=== PATIENT | male | born 1955 | race Caucasian/White ===

== ENCOUNTER 2016-06-21 11:24 | Emergency (ER) | payer OTHER ==
[~2016-06-21] VITALS: Ht 165.1 cm; Wt 89.0 kg
[2016-06-21 11:26] VITALS: Ht 165.1 cm; Wt 89.0 kg
[2016-06-21] MEDS ORDERED: SOD CHLORIDE 0.9% 1,000 ML IV STA (11:44)
[2016-06-21] MEDS ORDERED: ONDANSETRON 4 MG INJ IV STA (11:44)
[2016-06-21] MEDS ORDERED: MECLIZINE 12.5 MG TAB PO ONE (12:00)
[2016-06-21 12:04] LABS: ADD SCAN DIFF NO
[2016-06-21 12:11] LABS: BASOPHILS % 0.3 % (0.0-2.0); EOSINOPHILS % 0.1 % (0.0-7.0); HEMATOCRIT 44.6 % (42.0-52.0); HEMOGLOBIN 15.4 g/dl (14.0-18.0); LYMPHOCYTES # 0.8 10^3/ul (0.8-2.9); LYMPHOCYTES % 6.2 % (15.0-51.0); MEAN CORPUSCULAR HEMOGLOBIN 29.9 pg (29.0-33.0); MEAN CORPUSCULAR HGB CONC 34.5 g/dl (32.0-37.0); MEAN CORPUSCULAR VOLUME 86.6 fl (82.0-101.0); MEAN PLATELET VOLUME 9.9 fl (7.4-10.4); MONOCYTE # 0.4 10^3/ul (0.3-0.9); MONOCYTES % 3.3 % (0.0-11.0); NEUTROPHIL # 11.2 10^3/ul (1.6-7.5); NEUTROPHILS % 89.2 % (39.0-77.0); PLATELET COUNT 236 10^3/UL (140-415); RED BLOOD COUNT 5.15 10^6/ul (4.70-6.10); RED CELL DISTRIBUTION WIDTH 13.1 % (11.5-14.5); WHITE BLOOD COUNT 12.6 10^3/ul (4.8-10.8)
--- NOTE | 2016-06-21 12:19 | RADRPT ---
PROCEDURE: XR Chest. CLINICAL INDICATION: Shortness of breath. Cerebrovascular accident. TECHNIQUE: Single frontal view. COMPARISON: None. FINDINGS: The lungs are clear. The heart size is normal. There is no pleural effusion. There is no pneumothorax. IMPRESSION: 1. Normal chest radiograph. RPTAT: QQ .Luan Britt MD, MD Date Time Electronically viewed and signed by .Luan Britt MD, MD on 06/21/2016 12:18 .R/
[2016-06-21 12:22] LABS: INR 0.96; PROTIME 12.8 Sec (12.2-14.2)
[2016-06-21 12:23] LABS: PARTIAL THROMBOPLASTIN TIME 21.8 Sec (25.0-35.0)
[2016-06-21 12:24] LABS: ANION GAP 14 (8-16); BLOOD UREA NITROGEN 15 mg/dl (7-20); CALCIUM 9.3 mg/dl (8.4-10.2); CARBON DIOXIDE 25 mmol/L (21-31); CHLORIDE 106 mmol/L (97-110); CREATININE 0.71 mg/dl (0.61-1.24); GLUCOSE 151 mg/dl (70-220); POTASSIUM 3.7 mmol/L (3.5-5.1); SODIUM 141 mmol/L (135-144)
[2016-06-21 12:35] VITALS: BP 113/76; PULSE 63; RESP 18
--- NOTE | 2016-06-21 12:35 | RADRPT ---
PROCEDURE: CT Brain without contrast. CLINICAL INDICATION: Vertigo TECHNIQUE: Routine CT scan of the brain was performed on a high resolution multi detector scanner without intravenous contrast. One or more of the following dose reduction techniques were used: Auto mated exposure control; Adjustment of the mA and/or kV according to patient size; Use of iterative r econstruction technique. CTDI = 44 mGy. DLP = 630 mGy-cm. COMPARISON: No prior relevant examinations are available for comparison. FINDINGS: Hemorrhage: No evidence of intracranial hemorrhage. Acute ischemic changes: No evidence of acute ischemic changes. Mass effect/Midline shift: None. Parenchymal volume: Within normal limits for age. Ventricular system: Concordant with parenchymal volume. Chronic changes: Mild chronic-appearing microvascular ischemic changes of the supratentorial white m atter. Atherosclerotic calcifications of the cavernous portions of both internal carotid arteries ar e present. Extracranial soft tissues: Minimal right occipital soft tissue swelling possibly post-traumatic. Calvarium: No fractures. Paranasal sinuses: Visualized paranasal sinuses are clear. Mastoid air cells: Visualized mastoid air cells are clear. IMPRESSION: No acute intracranial abnormalities. Mild chronic-appearing microvascular ischemic changes of the supratentorial white matter. Minimal right occipital scalp soft tissue swelling is possibly post-traumatic. No fractures. MRI of the brain may be useful for further evaluation. RPTAT: AADD .Rich Summers MD, MD Date Time Electronically viewed and signed by .Rich Summers MD, MD on 06/21/2016 12:35 .B/
[2016-06-21 12:41] LABS: TROPONIN-I < 0.012 ng/ml (0.00-0.12)
[2016-06-21] MEDS ORDERED: MECL12.574 PO (12:49)
[2016-06-21] MEDS ORDERED: ONDA4TAB14 PO (12:49)
--- NOTE | 2016-06-21 12:51 | ERD ---
ER Documentation Chief Complaint Date/Time DATE: 06/21/16 TIME: 12:50 Chief Complaint dizziness and nausea today HPI Patient is a 61-year-old male with high cholesterol who presents with dizziness. He said the dizziness started this morning and he feels like the room is spinning. He had mild headache as well. The spinning became worse when he lays down. He has no treatment as of yet. He was having some vomiting. He has no fevers. Upon review of old medical records this is the patient's first visit to the emergency department. He does not know the name of his primary doctor. ROS All systems reviewed and are negative except as per history of present illness. Medications Home Meds Active Scripts Ondansetron (Ondansetron Odt) 4 Mg Tab.rapdis, 4 MG PO Q6H Y for NAUSEA AND/OR VOMITING, #10 TAB Prov:MILLIE HINTON MD 06/21/16 Meclizine Hcl* (Antivert*) 12.5 Mg Tab, 25 MG PO Q6H Y for DIZZINESS, #20 TAB Prov:MILLIE HINTON MD 06/21/16 Allergies Allergies: Coded Allergies: No Known Allergy (Unverified , 06/21/16) PMhx/Soc Hx Cardiac Disorders: Yes (CHOLESTEROLEMIA) Hx Alcohol Use: No Hx Substance Use: No Hx Tobacco Use: No Smoking Status: Never smoker FmHx Family History: No diabetes Physical Exam Vitals Vital Signs Date Time Temp Pulse Resp B/P Pulse Ox O2 Delivery O2 Flow Rate FiO2 06/21/16 12:35 63 18 113/76 98 06/21/16 12:02 Nasal Cannula 2 06/21/16 11:26 97.6 76 18 137/72 98 Physical Exam Const: No acute distress Head: Atraumatic Eyes: Normal Conjunctiva ENT: Normal External Ears, Nose and Mouth. Neck: Full range of motion..~ No meningismus. Resp: Clear to auscultation bilaterally Cardio: Regular rate and rhythm, no murmurs Abd: Soft, non tender, non distended. Normal bowel sounds Skin: No petechiae or rashes Back: No midline or flank tenderness Ext: No cyanosis, or edema Neur: Awake and alert, no slurred speech, cranial nerves II through XII are intact, strength is 5 out of 5 in the upper and lower extremities bilaterally Psych: Normal Mood and Affect Result Diagram: 06/21/16 1200 06/21/16 1200 Results 24 hrs Laboratory Tests Test 06/21/16 12:00 06/21/16 12:06 06/21/16 12:42 White Blood Count 12.610^3/ul Red Blood Count 5.1510^6/ul Hemoglobin 15.4g/dl Hematocrit 44.6% Mean Corpuscular Volume 86.6fl Mean Corpuscular Hemoglobin 29.9pg Mean Corpuscular Hemoglobin Concent 34.5g/dl Red Cell Distribution Width 13.1% Platelet Count 88534^3/UL Mean Platelet Volume 9.9fl Neutrophils % 89.2% Lymphocytes % 6.2% Monocytes % 3.3% Eosinophils % 0.1% Basophils % 0.3% Nucleated Red Blood Cells % 0.0/100WBC Neutrophils # 11.210^3/ul Lymphocytes # 0.810^3/ul Monocytes # 0.410^3/ul Eosinophils # 0.010^3/ul Basophils # 0.010^3/ul Nucleated Red Blood Cells # 0.010^3/ul Prothrombin Time 12.8Sec Prothrombin Time Ratio 1.0 INR International Normalized Ratio 0.96 Activated Partial Thromboplast Time 21.8Sec Sodium Level 141mmol/L Potassium Level 3.7mmol/L Chloride Level 106mmol/L Carbon Dioxide Level 25mmol/L Anion Gap 14 Blood Urea Nitrogen 15mg/dl Creatinine 0.71mg/dl Glucose Level 151mg/dl Hemoglobin A1c 5.7% Calcium Level 9.3mg/dl Troponin I < 0.012ng/ml Bedside Glucose 127mg/dL Urine Color LT. YELLOW Urine Clarity SLIGHTLY CLOUDY Urine pH 8.0 Urine Specific [place] 1.010 Urine Ketones NEGATIVE Urine Nitrite NEGATIVE Urine Bilirubin NEGATIVE Urine Urobilinogen 0.2 E.U./dL Urine Leukocyte Esterase NEGATIVE Urine Hemoglobin NEGATIVE Urine Glucose NEGATIVE% Urine Total Protein NEGATIVE Urine Opiates Screen Negative Urine Barbiturates Negative Urine Amphetamines Screen Negative Urine Benzodiazepines Screen Negative Urine Cocaine Screen Negative Urine Cannabinoids Negative Current Medications Medications (Trade) Dose Ordered Sig/Mylene Route PRN Reason Start Time Stop Time Status Last Admin Dose Admin Sodium Chloride (NS) 1,000 ml @ 1,000 mls/hr Q1H STAT IV 06/21/16 11:44 06/21/16 12:43 DC 06/21/16 12:12 Ondansetron HCl (Zofran Inj) 4 mg ONCE STAT IV 06/21/16 11:44 06/21/16 11:46 DC 06/21/16 12:12 Meclizine HCl (Antivert) 25 mg ONCE ONCE PO 06/21/16 12:00 06/21/16 12:01 DC 06/21/16 12:12 Procedures/MDM EKG read by me: Rate/Rhythm: Regular rate and rhythm at a rate of 74 Intervals: Normal Impression: No evidence of ischemia or arrhythmia CT brain shows no acute abnormality. Patient is a 61-year-old male with high cholesterol presents with dizziness. Patient also has headache. The symptoms are consistent with vertigo. At this point I doubt stroke. I doubt intracranial mass or meningitis. I believe outpatient management is appropriate. The patient feels better with Zofran and meclizine. The patient will be given a prescription for Zofran and meclizine. He was given a copy of the laboratory studies and imaging test prior to discharge. He can return for any worsening symptoms. He should follow-up with his primary doctor within 24-48 hours for reevaluation. Departure Diagnosis: Primary Impression: Dizziness Condition: Fair Patient Instructions: Dizziness, Unk Cause Referrals: Your doctor Additional Instructions: Llame al doctor MAANA y krysta ashwin [place] PARA DENTRO DE 1-2 MORIN.Dgale a la secretaria que nosotros le instruimos hacer esta [place].Avise o llame si medellin condicin se empeora antes de la [place]. Regresa aqui si peor o no mejor. MILLIE HINTON MD June 21, 2016 12:51
[2016-06-21 12:52] LABS: URINE BILIRUBIN (Dip) NEGATIVE (NEGATIVE); URINE BLOOD (Dip) NEGATIVE (NEGATIVE); URINE COLOR LT. YELLOW (YELLOW); URINE GLUCOSE (Dip) NEGATIVE (NEGATIVE); URINE KETONES (Dip) NEGATIVE (NEGATIVE); URINE LEUKOCYTE ESTERASE (Dip) NEGATIVE (NEGATIVE); URINE NITRITE (Dip) NEGATIVE (NEGATIVE); URINE UROBILINOGEN (Dip) 0.2 E.U./dL (0.1-1.0)
[2016-06-21 13:06] LABS: ADD UMIC NO; URINE TOTAL PROTEIN (Dip) NEGATIVE (NEGATIVE)
[2016-06-21 13:16] LABS: BARBITURATES Negative (NEGATIVE); BENZODIAZEPINES Negative (NEGATIVE); CANNABINOIDS Negative (NEGATIVE); COCAINE Negative (NEGATIVE); OPIATES Negative (NEGATIVE)
== END 2016-06-21 13:07 | disposition home or self-care (01) ==
LOC: E/R 11:24
DX: R42 Dizziness and giddiness (principal); R11.2 Nausea with vomiting, unspecified; R06.02 Shortness of breath
CPT/HCPCS: 36415; 70450; 71010; 80048; 80307; 81003; 82962; 83036; 84484; 85025; 85610; 85730; 93005; 96374; J2405; J7030; Z7502; Z7610

== ENCOUNTER 2016-07-17 15:51 | Emergency (ER) | payer OTHER ==
[~2016-07-17] VITALS: Wt 75.0 kg
[~2016-07-17 15:51] MED LIST: MECL12.574 PO; ONDA4TAB14 PO
[2016-07-17] MEDS ORDERED: ERYTOPOI RIGHT EYE (16:45)
--- NOTE | 2016-07-17 16:52 | ERD ---
ER Documentation Chief Complaint Date/Time DATE: 07/17/16 TIME: 16:46 Chief Complaint RIGHT LOWER EYELID SWELLING, REDNESS, PAIN HPI This 61-year-old male complains of some irritation on his right lower eyelid. Is been worsening over the last 6 months. He previously had surgery on that eyelid eye at a local [facility] floor he was told was an ingrown hair or eyelash. Patient has progressive irritation of the lower lid. Denies fevers, vomiting, visual changes, additional symptoms. He does not want to go back to the [facility] that he saw previously ROS All systems reviewed and are negative except as per history of present illness. Medications Home Meds Active Scripts Erythromycin* (Erythromycin* Ophthalmic) 1 Applic Oint, 1 APPLIC RIGHT EYE QID for 7 Days, #1 TUB Prov:MARCE SIMPSON MD 07/17/16 Ondansetron (Ondansetron Odt) 4 Mg Tab.rapdis, 4 MG PO Q6H Y for NAUSEA AND/OR VOMITING, #10 TAB Prov:MILLIE HINTON MD 06/21/16 Meclizine Hcl* (Antivert*) 12.5 Mg Tab, 25 MG PO Q6H Y for DIZZINESS, #20 TAB Prov:MILLIE HINTON MD 06/21/16 Allergies Allergies: Coded Allergies: No Known Allergy (Unverified , 06/21/16) PMhx/Soc History of Surgery: No Anesthesia Reaction: No Hx Neurological Disorder: No Hx Respiratory Disorders: No Hx Cardiac Disorders: Yes (CHOLESTEROLEMIA) Hx Psychiatric Problems: No Hx Miscellaneous Medical Probl: No Hx Alcohol Use: No Hx Substance Use: No Hx Tobacco Use: No Smoking Status: Never smoker Physical Exam Vitals Vital Signs Date Time Temp Pulse Resp B/P Pulse Ox O2 Delivery O2 Flow Rate FiO2 07/17/16 15:55 99.1 76 18 115/57 95 Physical Exam Const: [] Alert, [id number] Head: Atraumatic Eyes: Normal Conjunctiva. There is some scarring on the right lower eyelid which appears to be adhered to the globe. There is no significant erythema, fluctuance. There is a small ulceration on the lower eyelid there is no proptosis or abnormal eye movements. Eyes are PERRLA and anterior chambers appeared normal. ENT: Normal External Ears, Nose and Mouth. Neck: Full range of motion..~ No meningismus. Resp: Clear to auscultation bilaterally Cardio: Regular rate and rhythm, no murmurs Abd: Soft, non tender, non distended. Normal bowel sounds Skin: No petechiae or rashes Back: No midline or flank tenderness Ext: No cyanosis, or edema Neur: Awake and alert Psych: Normal Mood and Affect Procedures/MDM Patient presents with some scar tissue in the right lower eyelid presumably a complication of prior surgery. There is a small ulcer which could possibly be a neoplasm. Patient will require further evaluation and management by an [facility]. Patient has no signs or symptoms to suggest a emergent condition such as acute glaucoma, threats to vision, orbital cellulitis. Optic neuritis, retinal detachment. [facility] management this appears to likely need debridement possible biopsy. He is advised to return for visual changes, fevers, redness, new worsening symptoms Departure Diagnosis: Primary Impression: Eye problem Condition: Stable Patient Instructions: Conjunctivitis Caused by Irritation Referrals: [facility] Hours: Mon - Fri 9:00 AM - 5:00 PM Additional Instructions: See specialists for further evaluation and treatment. Appears to be a complication of previous surgery and scar tissue. Recheck otherwise for fevers , new symptoms MARCE SIMPSON MD Jul 17, 2016 16:52
== END 2016-07-17 17:04 | disposition home or self-care (01) ==
LOC: FTE 15:51
DX: H57.8 Other specified disorders of eye and adnexa (principal)
CPT/HCPCS: 99283

== ENCOUNTER 2017-03-22 11:51 | Emergency (ER) | END 2017-03-22 11:53 | disposition left against medical advice (07) ==

== ENCOUNTER 2017-03-28 13:38 | Emergency (ER) | END 2017-03-28 14:46 | disposition home or self-care (01) ==